=== PATIENT | male | born 1980 | race Two or more races ===

== ENCOUNTER 2024-03-06 00:47 | Emergency (ER) | payer MEDICAID ==
[~2024-03-06] VITALS: Ht 157.5 cm; Wt 62.8 kg
--- NOTE | 2024-03-06 01:07 | ED.PDOC ---
HPI (NEURO) HPI Comments 43-year-old male who came to ER for left facial numbness. Patient denies any medical problems. States since 6:00 a.m. yesterday. He has been experiencing left facial numbness, unable to close his left eye. Denies any headaches or dizziness, Persistence of left facial numbness with dryness of the left eye prompted patient to come to the ER. Patient states he is in-house some cough and congestion complaints a few days back. Vital signs were stable on arrival. Chief Complaint: Left Sided Weakness Time Seen by MD: 01:06 Reviewed Notes: Nurses Notes Information Source: Patient Mode of Arrival: Ambulatory Severity: Moderate Dizziness/Weakness Severity: Unable to do activities Headache Severity: Moderate Timing: Days Duration: Since onset Weakness Location: Facial (Left) Numbness Location: Facial (Left) Onset: At rest Circumstances: Spontaneous Symptoms: Other (Left-sided facial tingling and numbness) History of: None Modifying factors: Nothing Associated Signs and Symptoms: Numbness (Left facial) Past Medical History PAST MEDICAL HISTORY: Denies Surgical History: Denies all surgeries Family History Family History: Reviewed,noncontributory to illness Social History Smoker: Non-Smoker Alcohol: Denies ETOH Use Drugs: Denies Drug Use Lives In: Home Constitutional: denies: chills, diaphoresis, fatigue, fever, malaise, sweats, weakness, others EENTM: denies: blurred vision, double vision, ear bleeding, ear discharge, ear drainage, ear pain, ear ringing, eye pain, eye redness, hearing loss, mouth pain, mouth swelling, nasal discharge, nose bleeding, nose congestion, nose pain, photophobia, tearing, throat pain, throat swelling, voice changes, others Respiratory: denies: cough, hemoptysis, orthopnea, SOB at rest, shortness of breath, SOB with excertion, stridor, wheezing, others Cardiovascular: denies: chest pain, dizzy spells, diaphoresis, Dyspnea on exertion, edema, irregular heart beat, left arm pain, lightheadedness, palpitations, PND, syncope, others Gastrointestinal: denies: abdomen distended, abdominal pain, blood streaked bowels, constipated, diarrhea, dysphagia, difficulty swallowing, hematemesis, melena, nausea, poor appetite, poor fluid intake, rectal bleeding, rectal pain, vomiting, others Genitourinary: denies: burning, dysuria, flank pain, frequency, hematuria, incontinence, penile discharge, penile sore, pain, testicle pain, testicle swelling, urgency, others Neurological: reports: numbness (Left-sided facial); denies: dizziness, fainting, headache, left sided numbness, left sided weakness, paresthesia, pre- existing deficit, right sided numbness, right sided weakness, seizure, speech problems, tingling, tremors, weakness, others Musculoskeletal: denies: back pain, gout, joint pain, joint swelling, muscle pa in, muscle stiffness, neck pain, others Integumetry: denies: bruises, change in color, change in hair/nails, dryness, laceration, lesions, lumps, rash, wounds, others Allergic/Immunocompromised: denies: Difficulty Healing, Frequent Infections, Hives, Itching, others Hematologic/Lymphatic: denies: anemia, blood clots, easy bleeding, easy bruising, swollen glands, others Endocrine: denies: excessive hunger, excessive sweating, excessive thirst, excessive urination, flushing, intolerance to cold, intolerance to heat, unexplained weight gain, unexplained weight loss, others Psychiatric: denies: anxiety, bipolar disorder, depression, hopeless, panic disorder, schizophrenia, sleepless, suicidal, others Physical Exam General Appearance: Mild Distress (Lot distress due to anxiety related to his concerns as well as the inability to close left eye completely.), Normal HEENT: Pharynx Normal, TMs Normal, Other (Patient is unable to completely close his left eye with a at least 50% exposed when attempting to blink. Patient does have sensation of the left-sided forehead, cheek and jaw. No temporal pulsatile masses noted.) Neck: Full Range of Motion, Non-Tender, Normal, Normal Inspection Respiratory: Chest Non-Tender, Lungs Clear, No Accessory Muscle Use, No Respiratory Distress, Normal Breath Sounds Cardiovascular: No Edema, No JVD, No Murmur, No Gallop, Normal Peripheral Pulses, Regular Rate/Rhythm Breast Exam: Deferred Gastrointestinal: No Organomegaly, Non Tender, No Pulsatile Mass, Normal Bowel Sounds, Soft Genitalia: Deferred Pelvic: Deferred Rectal: Deferred Extremities: No calf tenderness, Normal capillary refill, Normal inspection, Normal range of motion, Non-tender, No pedal edema Musculoskeletal : Apperance: Normal Neurologic: Alert, No Motor Deficits, Normal Affect, Normal Mood, No Sensory Deficits Cerebellar Function: Normal Reflexes: Normal Skin: Dry, Normal Color, Warm Lymphatic: No Adenopathy Was a procedure done? Was a procedure done?: No Differential Diagnosis (SZ) Seizure: N/A CVA: Rick's Palsy, TIA X-Ray, Labs, Meds, VS Vital Signs Date Time Temp Pulse Resp B/P (MAP) Pulse Ox O2 Delivery O2 Flow Rate FiO2 03/06/24 00:50 98.4 97 16 132/89 (103) 99 Lab Test 03/06/24 00:56 Range/Units POC Glucose 121 H 70-106 mg/dl X-Ray, Labs, Meds, VS Comment Advised patient that due to his recent illness event, I believe he is suffering from a Rick's palsy events. Concerning is the fact that the patient has limited closing capacity in the left eye. We will attempt to locate an eye lubrication tonight for the patient to take home and a prescription will be written for him to chart picker tomorrow to keep his eye moist until he regains complete closing capacity. Patient should follow up with his primary care provider in the next few days. Time of 1ST Reevaluation: Reevaluation 1ST: Improved Consultation: PCP Patient Education/Counseling: Diagnosis, Treatment Family Education/Counseling: Diagnosis, Treatment, No Family Present Departure 1 Departure Time of Disposition: Impression: Primary Impression: Facial paralysis/[place] palsy Disposition: HOME / SELF CARE / HOMELESS Condition: Stable Additional Instructions: Advised patient utilize copious amounts of eye lubrication and maintain that his eye does not dry out. Spent time discussing that concerns already dry I in his current condition. Patient should follow up with the primary care provider in the next few days for re-evaluation. e-Prescriptions Prednisone (Prednisone) 20 Mg Tab 60 MG PO DAILY for 10 Days, #22 TAB 60 mg on day one through day five. Forty mg on day six and seven, 20 mg on day eight, nine and 10. Prov: DAKSHA FLOWERS PAC 03/06/24 Petrolatum (Eye Lubricant) Op Oin 1 GM OP QID, #30 GM Patient should use liberal amounts of eye lubrication to maintain moisture. Prov: DAKSHA FLOWERS PAC 03/06/24 Discharged With: Self, Friend Critical Care Note Critical Care Time?: No Stability Stability form required: No Heart Score Heart Score: Heart Score Response (Comments) Value History N/A 0 EKG N/A 0 Age N/A 0 Risk Factors N/A 0 Troponin N/A 0 Total 0 I personally scribed for DAKSHA FLOWERS PAC ([email or web address]) on 03/06/24 at 01:07. Electronically submitted by Glenn Daniel ([email or web address]). DAKSHA FLOWERS PAC Mar 06, 2024 01:07
[2024-03-06] MEDS ORDERED: ARTIOIN6 OP (01:33)
[2024-03-06] MEDS ORDERED: PRED20TA2 PO (01:55)
[2024-03-06 02:38] VITALS: BP 129/89; PULSE 86; RESP 16; TEMP 98.9; O2SAT 97
== END 2024-03-06 02:40 | disposition home or self-care (01) ==
LOC: ER 00:47
DX: G51.0 Bell's palsy (principal)
CPT/HCPCS: 82962

== ENCOUNTER 2024-06-29 11:46 | Emergency (ER) | payer SELFPAY, MEDICAID ==
[~2024-06-29] VITALS: Ht 157.5 cm; Wt 60.2 kg
[~2024-06-29 11:46] MED LIST: ARTIOIN6 OP; PRED20TA2 PO
--- NOTE | 2024-06-29 11:58 | ED.PDOC ---
GI ASSESSMENT HPI Comments 44 y.o male presents to the ED for a chief complaint of diffused abdominal pain associated with constipation that started 3 days ago. Patient describes pain as an aching sensation that is constant and has no alleviating factors despite taking Ibuprofen and Tylenol. Patient also reports using OTC suppositories to relieve constipation but had no success. Last BM was 3 days ago. He denies any rectal pain, dysuria, hematuria, fever, chills, nausea or vomiting. Chief Complaint: Abdominal Pain Time Seen by MD: 11:54 Primary Care Provider: unknown Reviewed Notes: Nurses Notes, Medications, Allergies Allergies: Coded Allergies: NO KNOWN ALLERGIES (Unverified , 03/06/24) Home Meds Active Scripts Prednisone (Prednisone) 20 Mg Tab, 60 MG PO DAILY for 10 Days, #22 TAB 60 mg on day one through day five. Forty mg on day six and seven, 20 mg on day eight, nine and 10. Prov:DAKSHA FLOWERS PAC 03/06/24 Petrolatum (Eye Lubricant) Op Oin, 1 GM OP QID, #30 GM Patient should use liberal amounts of eye lubrication to maintain moisture. Prov:DAKSHA FLOWERS PAC 03/06/24 Information Source: Patient Mode of Arrival: Ambulatory Timing: Days (3) Duration: Since onset Quality: Aching Vomitus: None Stool: Empty Severity: Moderate Recent: None Recent Hx of: None Pain Location: Diffuse Modifying Factors: Nothing Associated sign and symptoms: Constipation, Abdominal Pain Past Medical History PAST MEDICAL HISTORY: Denies Surgical History (Other): head Family History Family History: Reviewed,noncontributory to illness Social History Smoker: Non-Smoker Alcohol: Denies ETOH Use Drugs: Denies Drug Use Lives In: Home Constitutional: denies: chills, diaphoresis, fatigue, fever, malaise, sweats, weakness, others EENTM: denies: blurred vision, double vision, ear bleeding, ear discharge, ear drainage, ear pain, ear ringing, eye pain, eye redness, hearing loss, mouth pain, mouth swelling, nasal discharge, nose bleeding, nose congestion, nose pain, photophobia, tearing, throat pain, throat swelling, voice changes, others Respiratory: denies: cough, hemoptysis, orthopnea, SOB at rest, shortness of breath, SOB with excertion, stridor, wheezing, others Cardiovascular: denies: chest pain, dizzy spells, diaphoresis, Dyspnea on exertion, edema, irregular heart beat, left arm pain, lightheadedness, palpitations, PND, syncope, others Gastrointestinal: reports: abdominal pain, constipated; denies: abdomen distended, blood streaked bowels, diarrhea, dysphagia, difficulty swallowing, hematemesis, melena, nausea, poor appetite, poor fluid intake, rectal bleeding, rectal pain, vomiting, others Genitourinary: denies: burning, dysuria, flank pain, frequency, hematuria, incontinence, penile discharge, penile sore, pain, testicle pain, testicle swelling, urgency, others Neurological: denies: dizziness, fainting, headache, left sided numbness, left sided weakness, numbness, paresthesia, pre-existing deficit, right sided numbness, right sided weakness, seizure, speech problems, tingling, tremors, weakness, others Musculoskeletal: denies: back pain, gout, joint pain, joint swelling, muscle pain, muscle stiffness, neck pain, others Integumetry: denies: bruises, change in color, change in hair/nails, dryness, laceration, lesions, lumps, rash, wounds, others Allergic/Immunocompromised: denies: Difficulty Healing, Frequent Infections, Hives, Itching, others Hematologic/Lymphatic: denies: anemia, blood clots, easy bleeding, easy bruising, swollen glands, others Endocrine: denies: excessive hunger, excessive sweating, excessive thirst, excessive urination, flushing, intolerance to cold, intolerance to heat, unexplained weight gain, unexplained weight loss, others Psychiatric: denies: anxiety, bipolar disorder, depression, hopeless, panic disorder, schizophrenia, sleepless, suicidal, others All Other Systems: Reviewed and Negative Physical Exam General Appearance: Moderate Distress HEENT: Normal ENT Inspection, Pharynx Normal, TMs Normal Neck: Full Range of Motion, Non-Tender, Normal, Normal Inspection Respiratory: Chest Non-Tender, Lungs Clear, No Accessory Muscle Use, No Respiratory Distress, Normal Breath Sounds Cardiovascular: No Edema, No JVD, No Murmur, No Gallop, Normal Peripheral Pulses, Regular Rate/Rhythm Breast Exam: Deferred Gastrointestinal: No Organomegaly, Non Tender, No Pulsatile Mass, Normal Bowel Sounds, Soft Genitalia: Deferred Pelvic: Deferred Rectal: Deferred Extremities: No calf tenderness, Normal capillary refill, Normal inspection, Normal range of motion, Non-tender, No pedal edema Musculoskeletal : Apperance: Normal Neurologic: Alert, aging room hand II-XII nml as Tested, No Motor Deficits, Normal Affect, Normal Mood, No Sensory Deficits Cerebellar Function: Normal Reflexes: Normal Skin: Dry, Normal Color, Warm Peripheral Pulses: 3+ Radial (R), 3+ Radial (L) Lymphatic: No Adenopathy Was a procedure done? Was a procedure done?: No GI differential Dx Differential Diagnosis: Constipation, Diverticular disease, Esophagitis, Gastritis/PUD, Gastroenteritis, Inflammatory BD X-Ray, Labs, Meds, VS Vital Signs Date Time Temp Pulse Resp B/P (MAP) Pulse Ox O2 Delivery O2 Flow Rate FiO2 06/29/24 11:52 98.1 88 16 137/82 (100) 98 98.1 Lab Test 06/29/24 12:01 Range/Units White Blood Count Pending Red Blood Count Pending Hemoglobin Pending Hematocrit Pending Mean Corpuscular Volume Pending Mean Corpuscular Hemoglobin Pending Mean Corpuscular Hemoglobin Concent Pending Red Cell Distribution Width Pending Platelet Count Pending Mean Platelet Volume Pending Neutrophils (%) (Auto) Pending Lymphocytes (%) (Auto) Pending Monocytes (%) (Auto) Pending Basophils (%) (Auto) Pending Neutrophils # (Auto) Pending Lymphocytes # (Auto) Pending Monocytes # (Auto) Pending Sodium Level Pending Potassium Level Pending Chloride Level Pending Carbon Dioxide Level Pending Anion Gap Pending Blood Urea Nitrogen Pending Creatinine Pending Glomerular Filtration Rate Calc Pending BUN/Creatinine Ratio Pending Serum Glucose Pending Calcium Level Pending Patient alert. Complaining of suprapubic discomfort. Vitals stable. Answering all questions. Was given [place]. Abdomen is soft nontender. Moving all extremities. Reviewed his history. Explained to the patient. Was told to follow up with his primary care physician. Was told to come back if there is any problem. Time of 1ST Reevaluation: 11:56 Reevaluation 1ST: Unchanged Patient Education/Counseling: Diagnosis, Treatment, Prognosis Family Education/Counseling: No Family Present Departure 1 Departure Time of Disposition: 12:34 Impression: Primary Impression: Non-specific colitis Disposition: 01 HOME / SELF CARE / HOMELESS Condition: Good Discharged With: Self Critical Care Note Critical Care Time?: No Stability Stability form required: No I personally scribed for YIFAN BELLO MD ([email or web address]) on 06/29/24 at 11:58. Electronically submitted by Diana Solano ([facility]). YIFAN BELLO MD Jun 29, 2024 11:58
[2024-06-29 12:32] LABS: Basophils # (auto) 0 10 ^3/uL (0-0.2); Basophils % (auto) 0.2 % (0.0-2.0); Eosinophils # (auto) 0.1 10 ^3/uL (0-0.8); Eosinophils % (auto) 0.8 % (0.0-7.0); Hematocrit 46.1 % (41.0-53.0); Hemoglobin 15.5 g/dL (13.5-17.5); Lymphocytes # (auto) 1.2 10 ^3/uL (0.4-5.4); Lymphocytes % (auto) 13.1 % (10.0-50.0); Mean Corpuscular Hemoglobin 31.2 pg (28.0-32.0); Mean Corpuscular Hgb Conc. 33.7 g/dL (32.0-36.0); Mean Corpuscular Volume 92.8 fL (80.0-100.0); Monocytes # (auto) 0.9 10 ^3/uL (0-1.3); Monocytes % (auto) 9.8 % (0.0-12.0); Neutrophils # (auto) 6.9 10 ^3/uL (1.6-8.6); Neutrophils % (auto) 76.1 % (37.0-80.0); Platelet Count (auto) 176 10^3/uL (140-450); Red Blood Cells 4.97 10^6/uL (4.5-5.90); Red Cell Distribution Width 13.8 % (11.8-14.3); White Blood Cell 9.1 10^3/uL (4.4-10.8)
[2024-06-29 12:33] LABS: Chloride 102 mmol/L (98-107); Potassium 3.9 mmol/L (3.5-5.1); Sodium 139 mmol/L (136-145)
[2024-06-29 12:34] LABS: Anion Gap 7 (5-15); Carbon Dioxide 30 mmol/L (20-31)
[2024-06-29 12:35] LABS: Calcium 9.7 mg/dL (8.7-10.4)
[2024-06-29 12:39] LABS: BUN/Creatinine Ratio 13.1 (10.0-20.0); Blood Urea Nitrogen 11 mg/dL (9-23)
[2024-06-29 12:49] LABS: Glucose 123 mg/dL (74-106)
[2024-06-29 14:49] LABS: Urine Bacteria None Seen /hpf (None Seen)
[2024-06-29 15:23] LABS: Urine Blood 1+ /uL (Negative); Urine Clarity Clear (Clear); Urine Color Yellow (Yellow); Urine Mucus FEW (None Seen); Urine Protein, UAD TRACE (Negative); Urine Specific Gravity 1.029 (1.001-1.035); Urine Squamous Epithelial Cell None Seen /hpf (<5); Urine Urobilinogen 2 mg/dL (Negative); Urine WBC 1 /HPF (0-3)
[2024-06-29 15:45] VITALS: BP 121/86; PULSE 75; RESP 12; TEMP 98.9; O2SAT 98
== END 2024-06-29 15:46 | disposition home or self-care (01) ==
LOC: ER 11:46
DX: K52.9 Noninfective gastroenteritis and colitis, unspecified (principal); K59.00 Constipation, unspecified; Z79.52 Long term (current) use of systemic steroids
CPT/HCPCS: 36415; 80048; 81001; 85025